=== PATIENT | male | born 1955 | race Hispanic/Latino ===

== ENCOUNTER 2016-07-27 08:12 | Emergency (ER) | payer MEDICAID, OTHER ==
[2016-07-27 08:34] VITALS: BP 169/100
[2016-07-27 09:03] LABS: Bacteria,Urine 1+ /HPF (Negative); Bilirubin,Urine NEG (Negative); Blood,Urine NEG (Negative); Ketones,Urine NEG (Negative); Leukocyte Esterase,Urine SM (Negative); Nitrite,Urine NEG (Negative); Protein,Urine <15 mg/dL mg/dL (Negative); Urobilinogen,Urine < 2.0 mg/dL (<2.0)
[2016-07-27] MEDS ORDERED: NACL 0.9% 1000 ML 1,000 ML IV ONE (10:58)
[2016-07-27] MEDS ORDERED: MORPHINE IV ONE (10:58)
[2016-07-27] MEDS ORDERED: ZOFRAN IV ONE (10:58)
[2016-07-27] MEDS ORDERED: DUONEB 0.5 MG-3 MG/3 ML SOLN IH ONE (10:58)
--- NOTE | 2016-07-27 11:25 | Emergency Department Report ---
ED General Adult HPI - General Chief complaint: Back Pain/Injury Stated complaint: LOWER BACK PAIN Time Seen by Provider: 07/27/16 10:51 Source: patient Mode of arrival: Ambulatory Limitations: No Limitations - History of Present Illness Initial comments: Pt c/o R flank pain x 1 week. Pt states his R lower back felt sore and gradually turned into a throbbing, burning pain. PT c/o RLQ abd pain. PT also c /o urinary retention. PT states he ordered some pills of the TV for this but stopped taking them. PT states he has hx of appendectomy MD Complaint: R flank pain Onset/Timin -: Gradual, week(s) Location: back, abdomen Severity scale (0 -10): 8 Quality: burning, sharp Consistency: constant Worsens with: none Associated Symptoms: denies other symptoms. denies: loss of appetite, nausea/ vomiting, shortness of breath (PT states he has a hx of COPD but he does not feel sob ) - Related Data Previous Rx's Medication Instructions Recorded Last Taken Type Acetaminophen/Codeine [Tylenol #3] 1 tab PO Q6H PRN #6 tab 07/27/16 Unknown Rx Sulfamethoxazole/Trimethoprim 1 each PO BID #14 tablet 07/27/16 Unknown Rx [Bactrim DS TAB] Allergies Allergy/AdvReac Type Severity Reaction Status Date / Time No Known Allergies Allergy Unverified 05/27/14 10:40 ED Review of Systems ROS: Stated complaint: LOWER BACK PAIN Other details as noted in HPI Comment: All other systems reviewed and negative Constitutional: denies: chills, fever Respiratory: denies: shortness of breath, SOB with exertion, SOB at rest Cardiovascular: denies: chest pain Gastrointestinal: abdominal pain. denies: nausea, vomiting, diarrhea, constipation, hematemesis, melena, hematochezia Genitourinary: dysuria, other (retention ) Musculoskeletal: back pain ED Past Medical Hx - Past Medical History Previous Medical History?: Yes Hx COPD: Yes - Surgical History Past Surgical History?: Yes Hx Appendectomy: Yes Additional Surgical History: Right inquinal hernia repair, Left hand surgery - Social History Smoking Status: Current Every Day Smoker Substance Use Type: Alcohol, Non Opiate Pain, Prescribed - Medications Home Medications: Home Medications Medication Instructions Recorded Confirmed Last Taken Type Acetaminophen/Codeine [Tylenol #3] 1 tab PO Q6H PRN #6 tab 07/27/16 Unknown Rx Sulfamethoxazole/Trimethoprim 1 each PO BID #14 tablet 07/27/16 Unknown Rx [Bactrim DS TAB] ED Physical Exam - General Limitations: No Limitations General appearance: alert, in no apparent distress - Head Head exam: Present: atraumatic, normocephalic, normal inspection - Eye Eye exam: Present: normal appearance, PERRL, EOMI. Absent: conjunctival injection - ENT ENT exam: Present: normal exam, normal external ear exam - Neck Neck exam: Present: normal inspection, full ROM. Absent: tenderness, lymphadenopathy - Respiratory Respiratory exam: Present: wheezes, prolonged expiratory. Absent: chest wall tenderness, accessory muscle use, decreased breath sounds - Expanded Respiratory Exam Expanded Location: Wheezes: Right, Lower - Cardiovascular Cardiovascular Exam: Present: regular rate, normal rhythm - GI/Abdominal GI/Abdominal exam: Present: soft, tenderness, guarding, hyperactive bowel sounds. Absent: rebound - Extremities Exam Extremities exam: Present: normal inspection, full ROM. Absent: tenderness - Back Exam Back exam: Present: normal inspection, full ROM, tenderness, muscle spasm, paraspinal tenderness. Absent: CVA tenderness (R), CVA tenderness (L), vertebral tenderness - Neurological Exam Neurological exam: Present: alert, oriented X3 - Psychiatric Psychiatric exam: Present: normal affect, normal mood - Skin Skin exam: Present: warm, dry, intact, normal color ED Course Vital Signs 07/27/16 08:30 Temperature 97.4 F L Pulse Rate 88 Respiratory 20 Rate Blood Pressure 169/100 O2 Sat by Pulse 96 Oximetry - Reevaluation(s) Reevaluation #1: 07/27/16 11:27 PT aware of plan of care. Reevaluation #2: 07/27/16 12:55 PT aware of abnormal findings on CT scan. PT states he is feeling better and wanting to leave. PT aware he must follow up with PCP and urology. PT verbalizes understanding. PT states he does not want a breathing treatment. PT states he has inhalers at home. PT given strict return precautions. - Pulse Oximetry Interpretation Digit-Finger Initial Pulse Oximetry Readin Actions Taken: none ED Medical Decision Making - Lab Data Result diagrams: 07/27/16 11:37 07/27/16 11:37 - Radiology Data Radiology results: report reviewed CT abd/ pelvic - diverticula chava renal stones LLL nodule in lung prostate - possible cyst - Differential Diagnosis renal colic, uti, nephrolitis, Critical Care Time: No Critical care attestation.: If time is entered above; I have spent that time in minutes in the direct care of this critically ill patient, excluding procedure time. ED Disposition Clinical Impression: Right flank pain, Lung nodule seen on imaging study, Renal calculus, bilateral UTI (urinary tract infection) Qualifiers: Urinary tract infection type: site unspecified Hematuria presence: without hematuria Qualified Code(s): N39.0 - Urinary tract infection, site not specified Diverticula of colon Qualifiers: Diverticulosis bleeding: diverticulosis without bleeding Qualified Code(s): K57.30 - Diverticulosis of large intestine without perforation or abscess without bleeding Disposition: DISCHARGED TO HOME OR SELFCARE Is pt being admited?: No Does the pt Need Aspirin: No Condition: Stable Instructions: Diverticulitis (ED), Kidney Stones (ED), Urinary Tract Infection in Men (ED), Renal Colic (ED), Diverticulitis Diet (ED), Dysuria (ED), Pulmonary Nodules (ED) Additional Instructions: no driving or ETOH after taking Tylenol #3 for pain. follow up with PCP and Urology in 2-3 days Return to the ED if worsening or concerns use your inhalers as needed Recheck your bp on your follow up visit Prescriptions: Acetaminophen/Codeine [Tylenol #3] 1 tab PO Q6H PRN #6 tab PRN Reason: Pain , Severe (7-10) Sulfamethoxazole/Trimethoprim [Bactrim DS TAB] 1 each PO BID #14 tablet Referrals: PRIMARY MD FIDEL [Primary Care Provider] - 3-5 Days TERE MURO MD [Staff Physician] - 3-5 Days [facility] [place]] - 3-5 Days [facility] [Outside] - 3-5 Days Time of Disposition: 13:04
[2016-07-27 12:05] LABS: Basophils % (Auto) 0.9 % (0.0-1.8); Eosinophils % (Auto) 3.4 % (0.0-4.3); Hematocrit 45.5 % (35.5-45.6); Hemoglobin 14.2 gm/dl (11.8-15.2); Mean Corpuscular HGB Conc 31 % (32-34); Mean Corpuscular Hemoglobin 28 pg (28-32); Mean Corpuscular Volume 89 fl (84-94); Platelet Count 274 K/mm3 (140-440); Red Cell Distribution Width 15.1 % (13.2-15.2); White Blood Count 10.2 K/mm3 (4.5-11.0)
--- NOTE | 2016-07-27 12:07 | Cat Scan Report ---
CT OF THE ABDOMEN AND PELVIS WITHOUT CONTRAST HISTORY: Right flank pain. TECHNIQUE: Helical CT without contrast. Sagittal and coronal reformatted images. FINDINGS: No comparison. Both kidneys are normal size, contour and position. There are a few scattered punctate calyceal stones in both kidneys. The kidneys are within normal limits otherwise. The ureters are normal course and caliber. No ureteral stones are identified. The bladder is moderately distended. No bladder wall abnormality or intraluminal stone. There is however a 1 mm calcification within the central prostate on image 313, series 2. This may be within the prostatic urethra. Please correlate with the patient's clinical presentation. The unenhanced CT appearance of the liver, biliary system, pancreas, spleen and adrenal glands are within normal limits. There are a few scattered diverticula in the distal colon. Otherwise, the GI system is within normal limits given no oral contrast was administered. The appendix is not confidently identified, correlate with surgical history. There is moderate dextroscoliosis of the thoracolumbar spine with degenerative changes. No fracture or bone lesion is detected. There is moderate breathing motion artifact at the level of the lung bases. A 1.3 cm nodule is identified at the left lung base. Overall it has a benign appearance. Close interval followup is recommended or correlation with previous exams would be helpful if they are available. IMPRESSION: Punctate bilateral renal stones. No ureteral stones identified. The bladder appears moderately distended. There is question of a 1 mm stone in the prostatic urethra. 1.3 cm left lower lobe nodule.
[2016-07-27 12:22] LABS: Alanine Aminotransferase 17 units/L (7-56); Albumin 4.3 g/dL (3.9-5); Albumin/Globulin Ratio 1.6 %; Alkaline Phosphatase 65 units/L (35-129); Anion Gap 17 mmol/L; BUN/Creatinine Ratio 13.63; Blood Urea Nitrogen 15 mg/dL (9-20); Calcium 9.1 mg/dL (8.4-10.2); Carbon Dioxide 31 mmol/L (22-30); Chloride 101.2 mmol/L (98-107); Glucose 106 mg/dL (75-100); Lipase 19 units/L (13-60); Potassium 4.8 mmol/L (3.6-5.0); Sodium 144 mmol/L (137-145)
== END 2016-07-27 13:24 | disposition home or self-care (01) ==
LOC: ED 08:12
DX: N39.0 Urinary tract infection, site not specified (principal); K57.30 Diverticulosis of large intestine without perforation or abscess without bleeding; R91.1 Solitary pulmonary nodule; N20.0 Calculus of kidney; J44.9 Chronic obstructive pulmonary disease, unspecified; F17.200 Nicotine dependence, unspecified, uncomplicated; Z90.49 Acquired absence of other specified parts of digestive tract
CPT/HCPCS: 36415; 74176; 80053; 81001; 83690; 85025; 94640; 96361; 96374; 96375; 99284; J2270; J2405; J7030